=== PATIENT | male | born 1970 | race Caucasian/White ===

== ENCOUNTER 2019-09-04 18:02 | Emergency (ER) | payer OTHER ==
[~2019-09-04] VITALS: Ht 160 cm; Wt 75.0 kg
[~2019-09-04 18:02] MED LIST: NAPR500T6
[2019-09-04] MEDS: KETOROLAC TROMETHAMINE 60 MG/2 ML VIAL IM ONE (20:30)
[2019-09-04 20:51] VITALS: BP 135/79
== END 2019-09-04 20:57 | disposition home or self-care (01) ==
LOC: EMS 20:30
DX: S63.502A Unspecified sprain of left wrist, initial encounter (principal); X50.0XXA Overexertion from strenuous movement or load, initial encounter; Y93.89 Activity, other specified; Y92.89 Other specified places as the place of occurrence of the external cause; Y99.8 Other external cause status
CPT/HCPCS: 29125; 73110; 96372; 99283; J1885